=== PATIENT | male | born 1980 | race Caucasian/White ===

== ENCOUNTER 2024-12-18 05:23 | Emergency (ER) | payer OTHER, SELFPAY ==
[2024-12-18 05:32] VITALS: BP 184/112
[2024-12-18 06:35] VITALS: BMI 28.6
[2024-12-18 06:42] VITALS: BP 140/81
[2024-12-18 06:50] LABS: Hematocrit 46.6 % (39.0-52.0); Hemoglobin 16.7 g/dL (13.0-18.0); Mean Corp Hgb Conc. 35.8 g/dL (33.0-37.0); Mean Corpuscular Hgb 30.5 pg (27.0-31.0); Mean Platelet Volume 10.5 fL (7.4-10.4); Platelet Count 220 10^3/uL (130-400); Red Blood Cell Count 5.48 10^6/uL (4.70-6.10); Red Cell Dist. Width 12.6 % (11.5-14.5); White Blood Cell Count 3.2 10^3/uL (4.8-10.8)
[2024-12-18 07:00] VITALS: BP 120/80
[2024-12-18 07:11] LABS: Troponin I < 0.012 ng/ml
[2024-12-18 07:37] LABS: TSH 3.36 uIU/ml (0.47-4.68)
--- NOTE | 2024-12-18 07:52 | ED.GENMED ---
History of Present Illness
General
Chief Complaint: Heart Rate Problem
Source: patient
Exam Limitations: none
Time Seen by Provider: 12/18/24 06:05
Nursing documentation reviewed up to this point in time: agreed with
History of Present Illness
History of Present Illness:
Patient presents to ED after waking up this morning around 5 AM with chest palpitations with shortness of breath, Has never happened before. Denies chest pain. Denies dizziness. Denies diaphoresis. Denies nausea or vomiting denies recent
illness. Denies recent travel. Denies leg pain or swelling. Denies back pain. Denies recent change in medications or diet. Patient does report feeling stressed recently. In addition, patient has been modifying his diet along with increased
cardiovascular exercise, and has lost approximately 15 pounds of weight over the past 2 weeks. However, patient states that he does drink 'plenty of water'. Patient does not smoke, but does report drinking alcohol occasionally. At the time of
evaluation ED, patient states that his symptoms have resolved spontaneously.
Past History
Past History
ED Past Medical History: None
ED Past Surgical History: None
Social History
Tobacco: Non-smoker
Review of Systems
Review of Systems
Allergies reviewed?: Yes
All Other Systems: ROS reviewed and negative except as documented in HPI and ROS
Constitutional: Reports no symptoms
Respiratory: Reports trouble breathing
Cardiac: Reports palpitations
ABD/GI: Reports no symptoms
Musculoskeletal: Reports no symptoms
Skin: Reports no symptoms
Neurological: Reports no symptoms
Phy Exam
Physical Exam
Physical Exam:
Physical Exam
General: no apparent distress, not acutely ill. afebrile.
Head: nc/at. eomi
Neck: supple. normal range of motion. no jvd
Heart: s1/s2 regular rate and rhythm, no murmur.
Lungs: no acute respiratory distress. clear bilaterally
Abdomen: normal bowel sounds. not tender.
Neuro: alert and oriented x 3. no focal neurological deficits
Skin: no rash
Psychiatric: well kept. interactive and cooperative
Extremities: no edema. no calf tenderness.
Scores
[id number] Score for Afib Stroke Risk
Age in Years (65=0, 65-74=1, >/=75=2): <65
Sex (Female=+1): Male
Congestive Heart Failure History (Yes=+1): No
Hypertension History (Yes=+1): No
Stroke/TIA/Thromboembolism History (Yes=+2): No
Vascular Disease History (Yes=+1): No
Diabetes Mellitus (Yes=+1): No
Score: 0
Anticoagulation Recommendations: Anticoagulation not indicated (as validated in nonvalvular afib). Consider anticoagulation irrespective of score in patients with HCM
Course
Orders/Labs/Results
Orders:
Orders
12/18/24 05:35
EKG [Electrocardiogram (*1)] Urgent
Reason for Study: Chest Pain
12/18/24 05:36
EKG- Treatment ONCE
12/18/24 06:20
Electrocardiogram (*1) Urgent
Reason for Study: Atrial Fibrillation
EKG- Treatment ONCE
12/18/24 06:26
Complete Blood Count/With Diff Urgent
Troponin I Urgent
12/18/24 06:28
Add On- LAB Urgent
Comments:: add to COMP
Tests Added?: TSH
12/18/24 06:33
TSH Urgent
Comment: ADD ON
12/18/24 08:00
Comprehensive Metabolic Panel Urgent
Comment: REDRAW
Abnormal Lab Results
12/18/24
06:26
WBC 3.2 L 10^3/uL
(4.8-10.8)
MPV 10.5 H fL
(7.4-10.4)
Absolute Neuts (auto) 1.2 L 10^3/uL
(1.4-6.5)
Neutrophils % 36.9 L %
(42.2-75.2)
Lymphocytes % 52.0 H %
(20.5-51.1)
12/18/24 06:26
12/18/24 08:00
Vital Signs
Initial and Last Documented VS:
Initial Vital Signs
Temp Pulse Resp BP Pulse Ox
97.8 F 142 28 184/112 100
12/18/24 05:32 12/18/24 05:32 12/18/24 05:32 12/18/24 05:32 12/18/24 05:32
Last Documented Vital Signs
Temp Pulse Resp BP Pulse Ox
97.8 F 78 18 111/78 98
12/18/24 05:32 12/18/24 08:45 12/18/24 08:45 12/18/24 08:00 12/18/24 08:45
MDM/Problems Addressed
MDM/Problems Addressed:
Initial EKG revealed rapid atrial fibrillation. However, during brief observation ED on the monitor, prior to my evaluation, patient noted to convert spontaneously to normal sinus rhythm, confirmed by repeat EKG.
Discussed with on-call early childhood aide classroom, . Does not recommend anti-coagulation. Recommends either providing metoprolol as needed vs daily dosing until outpatient evaluation. Cardiology office will call patient and make an arrangement for
urgent f/u.
Pt prefers to take Toprol daily. Pt otherwise agrees with treatment plan
*Critical Care Note
Total Time (30-74mins, 75-104mins- exclusive of procedures): Not Applicable
ED Attending Note
-
Portions of this chart may have been created with voice recognition software.� Occasional wrong word or��sound alike� substitutions may have occurred due to the inherent limitations of voice recognition software.
Discharge Plan
Departure
Patient Disposition: Home (Routine Discharge)
Date of Disposition: 12/18/24
Time of Disposition: 08:38
Patient with high blood pressure during this ER visit?: Yes
Condition: Good
Discharge Problem:
Atrial fibrillation
Instructions: Atrial Fibrillation (DC)
Prescriptions:
New
metoprolol succinate [Toprol XL] 25 mg tablet extended release 24 hr
25 mg PO DAILY Qty: 20 0RF
No Action
allopurinol 300 mg Tablet
300 mg PO DAILY
rosuvastatin 10 mg Tablet
10 mg PO DAILY
rosuvastatin [Crestor] 10 mg Tablet
10 mg PO DAILY
Referrals:
Hu Yates MD [Active] -
Brandy Nolan MD [Family Provider] -
Activity Restrictions/Additional Instructions:
As discussed, please follow-up with referred early childhood aide classroom for further evaluation and treatment. Your prescription has been sent electronically to [facility] pharmacy in [place].
Interventions
Interventions:
*Risk Screen - Suicide Last Done: 12/18/24 05:50
*General Assessment Last Done: 12/18/24 05:50
*Neglect/Abuse Screening Last Done: 12/18/24 06:41
*ED- Fall Risk Assessment Last Done: 12/18/24 05:50
*ED COVID-19 Vaccine History Last Done: 12/18/24 05:50
*Nursing Disposition Last Done: 12/18/24 09:00
ED- Cardiac Assessment Last Done: 12/18/24 05:50
ED- Pulmonary Assessment Last Done: 12/18/24 05:50
Discharge Date and Time
Discharge Date/Time: 12/18/24 09:00
Print Language: [place] CITIZ[place]
[2024-12-18 08:00] VITALS: BP 111/78
[2024-12-18 08:33] LABS: ALT (SGPT) 49 U/L (0-50); AST (SGOT) 32 U/L (17-59); Albumin 4.3 g/dl (3.5-5.0); Alkaline Phosphatase 76 U/L (38-126); Blood Urea Nitrogen 13 mg/dl (9-20); Calcium 9.8 mg/dl (8.4-10.2); Carbon Dioxide 24 mmol/L (22-30); Chloride 103 mmol/L (98-107); Estimated Creatinine Clearance 122 ml/min; Glucose 85 mg/dl (70-99); Sodium 140 mmol/L (135-145); Total Bilirubin 0.8 mg/dl (0.2-1.3); Total Protein 6.8 g/dl (6.3-8.2); eGFR > 60.00
[2024-12-18 08:39] LABS: % Basophils 0.6 % (0-2); % Eosinophils 1.2 % (0-6); % Immature Granulocytes 0.3 % (0-0.5); % Neutrophils 36.9 % (42.2-75.2); Absolute Lymphocytes 1.7 10^3/uL (1.2-3.4); Absolute Monocytes 0.3 10^3/uL (0.1-0.6); Absolute Neutrophils 1.2 10^3/uL (1.4-6.5); Nucleated Red Blood Cells % 0 % (-)
== END 2024-12-18 09:00 | disposition home or self-care (01) ==
LOC: EMR 05:23
PROVIDERS: EMERGENCY PHYSICIAN Emergency Medicine; FAMILY PHYSICIAN Internal Medicine
DX: I48.91 Unspecified atrial fibrillation (principal)
CPT/HCPCS: 99283; 80053; 84443; 84484; 85025; 93005

== ENCOUNTER 2024-12-19 15:50 | Emergency (ER) | payer OTHER, SELFPAY ==
[2024-12-19 15:51] VITALS: BP 128/85
[2024-12-19 16:00] VITALS: BP 141/82
--- NOTE | 2024-12-19 16:36 | ED.GENMED ---
History of Present Illness
General
Chief Complaint: Heart Rate Problem
Source: patient, records (Seen in emergency department yesterday, with spontaneous conversion from rapid atrial fibrillation to normal sinus rhythm.) and spouse
Exam Limitations: none
Time Seen by Provider: 12/19/24 16:35
Nursing documentation reviewed up to this point in time: agreed with
History of Present Illness
History of Present Illness:
44-year-old male presents emergency department due to palpitations. He states he feels different than when he had atrial fibrillation yesterday. He denies chest pain. He did take his Toprol today.
Past History
Past History
ED Past Medical History: Arrthythmia (Atrial fibrillation)
ED Past Surgical History: None
Social History
Tobacco: Non-smoker
Alcohol: Occasional
Drug: None
Personal:
Living: with family
Employment: Employed (Teacher)
Review of Systems
Review of Systems
Allergies reviewed?: Yes
All Other Systems: Not applicable
Constitutional: Reports no symptoms
EENT: Reports no symptoms
Respiratory: Reports no symptoms
Cardiac: Reports palpitations
ABD/GI: Reports no symptoms
: Reports no symptoms
Musculoskeletal: Reports no symptoms
Skin: Reports no symptoms
Neurological: Reports no symptoms
Endocrine: Reports no symptoms
Hematologic/Lymphatic: Reports no symptoms
Psychiatric: Reports no symptoms
Phy Exam
Physical Exam
Physical Exam:
Physical Exam
General: no apparent distress, not acutely ill
Neck: supple. no meningeal signs. normal posterior pharynx
Heart: s1/s2 regular rate and rhythm, no murmur. equal radial
pulses.
HEENT: Pupils equal round reactive to light, EOMI
Lungs: no acute respiratory distress. clear bilaterally
Abdomen: normal bowel sounds. not tender. no CVAT
Neuro: alert and oriented. no focal neurological deficits cranial nerves II through XII intact
Skin: no rash
Psychiatric: well kept. interactive and cooperative
Extremities: no edema. no calf tenderness. negative homans. good distal pulses
Course
Orders/Labs/Results
Orders:
Orders
12/19/24 15:50
Electrocardiogram (*1) Urgent
Reason for Study: Atrial Fibrillation
EKG- Treatment ONCE
12/19/24 15:55
Electrocardiogram (*1) Urgent
Reason for Study: Atrial Fibrillation
EKG- Treatment ONCE
Vital Signs
Initial and Last Documented VS:
Initial Vital Signs
Temp Pulse Resp BP Pulse Ox
98.1 F 85 16 128/85 98
12/19/24 15:51 12/19/24 15:51 12/19/24 15:51 12/19/24 15:51 12/19/24 15:51
Last Documented Vital Signs
Temp Pulse Resp BP Pulse Ox
98.1 F 74 16 141/82 98
12/19/24 15:51 12/19/24 16:00 12/19/24 15:51 12/19/24 16:00 12/19/24 15:51
MDM/Problems Addressed
Differential Diagnosis Includes:
Atrial fibrillation, palpitation
MDM/Problems Addressed:
44-year-old male with palpitations. Atrial fibrillation not seen on EKG or monitor. Stable for discharge. Follow-up with cardiology Monday. Return precautions given.
Chronic conditions affecting care: Arrhythmia
*Pulse Oximetry
Patient hypoxic: no
*EKG
Interpreted by ED Provider?: Yes
EKG Intrepretation Date: 12/19/24
EKG Intrepretation Time: 15:58
Interpretation: normal
Comparison EKG: no changes
Heart Rate: 75
Rate: normal
Rhythm: sinus
Guys: normal axis
Interval: normal interval
QRS Pattern: normal QRS
Ischemia: no ischemia
*Eyelet Machine Operator Interpretation
Rate: normal
Interpretation: normal
Heart Rate: 80
Rhythm: sinus
*Critical Care Note
Total Time (30-74mins, 75-104mins- exclusive of procedures): Not Applicable
Data Reviewed
Review of Other/Old Records Reveals: Testing (EKG from December 18, 2024 at 5:38 AM shows atrial fibrillation with rapid ventricular response)
Source: records
Patient Management
Social determinants of health affecting care: Living situation and Strong social support
Escalation/DeEscalation of care consider admission/obs:
Admit not indicated
ED Attending Note
-
Portions of this chart may have been created with voice recognition software.� Occasional wrong word or��sound alike� substitutions may have occurred due to the inherent limitations of voice recognition software.
Discharge Plan
Departure
Patient Disposition: Home (Routine Discharge)
Date of Disposition: 12/19/24
Time of Disposition: 16:59
Patient with high blood pressure during this ER visit?: Yes
Condition: Good
Discharge Problem:
Palpitations with regular cardiac rhythm
Instructions: Atrial Fibrillation (DC), BLOOD PRESSURE
Prescriptions:
No Action
allopurinol 300 mg Tablet
300 mg PO DAILY
rosuvastatin 10 mg Tablet
10 mg PO DAILY
rosuvastatin [Crestor] 10 mg Tablet
10 mg PO DAILY
metoprolol succinate [Toprol XL] 25 mg tablet extended release 24 hr
25 mg PO DAILY Qty: 20 0RF
Interventions
Interventions:
*Risk Screen - Suicide Last Done: 12/19/24 15:51
*Neglect/Abuse Screening Last Done: 12/19/24 15:51
ED- Cardiac Assessment Last Done: 12/19/24 16:22
ED- Pulmonary Assessment Last Done: 12/19/24 16:22
Discharge Date and Time
Print Language: KYRGYZ
== END 2024-12-19 17:36 | disposition home or self-care (01) ==
LOC: EMR 15:50
PROVIDERS: EMERGENCY PHYSICIAN Emergency Medicine; FAMILY PHYSICIAN Internal Medicine
DX: R00.2 Palpitations (principal); I48.91 Unspecified atrial fibrillation
CPT/HCPCS: 99283; 93005

== ENCOUNTER 2024-12-19 19:58 | Emergency (ER) | payer OTHER, SELFPAY ==
[2024-12-19 20:03] VITALS: BP 145/90
[2024-12-19 20:13] VITALS: BP 133/82
--- NOTE | 2024-12-19 20:47 | ED.GENMED ---
History of Present Illness
General
Chief Complaint: Cardiac Symptoms
Source: patient and spouse
Time Seen by Provider: 12/19/24 20:20
History of Present Illness
History of Present Illness:
This patient is a 44-year-old male presents emergency department with complaints of feeling like he is in A-fib again, described as palpitations. He first developed this for the first time yesterday, was seen in the emergency department,
spontaneously converted. His [id number] is 0, case was discussed with cardiology and has appointment on Monday for follow-up. He was started on Toprol 25 mg. Today, he took his med at 3:30 PM. However, shortly before this he started to feel
like he was going into A-fib again, and came to the ER. He again spontaneously converted and went home. He presents again tonight, again feeling like he is in A-fib. Since arrival he is spontaneously converted and then gone into A-fib again at
least 3 times. He denies associated chest pain or pressure, dyspnea, lightheadedness, leg swelling, family history of early CAD, clotting disorder, or arrhythmia. He denies history of thyroid disorder, heavy alcohol use, OTC meds use. He denies
PE risk factors such as recent immobilization, recent trauma, smoking, etc.
Past History
Past History
ED Past Medical History: Arrthythmia (Atrial fibrillation)
ED Past Surgical History: None
Social History
Tobacco: Non-smoker
Alcohol: Occasional
Drug: None
Personal:
Living: with family
Employment: Employed (Teacher)
Phy Exam
Physical Exam
Physical Exam:
GENERAL: Alert , in no apparent distress
EYE: pupils equal and reactive
NECK: Supple, no significant adenopathy.
ENT: o/p clr, mmm.
CARDIAC: Regular rate and rhythm .
LUNGS: Clear breath sounds bilaterally, no acute respiratory distress, no wheezes/rales/rhonchi
ABDOMEN: Soft, without focal tenderness, no r/g, no cvat
NEUROLOGICAL: Alert and oriented, no focal neuro deficits
SKIN: Warm and dry, skin intact.
MUSCULOSKELETAL: No edema, well perfused.
PSYCH: Normal and appropriate interaction.
Course
Orders/Labs/Results
Orders:
Orders
12/19/24 19:59
EKG [Electrocardiogram (*1)] Urgent
Reason for Study: Palpitations
12/19/24 20:00
EKG- Treatment ONCE
12/19/24 20:15
EKG [Electrocardiogram (*1)] Urgent
Reason for Study: Atrial Fibrillation
EKG- Treatment ONCE
12/19/24 20:49
Metoprolol Xl [Toprol Xl] 25 mg PO NOW STA
Vital Signs
Initial and Last Documented VS:
Initial Vital Signs
Temp Pulse Resp BP Pulse Ox
97.6 F 140 20 145/90 99
12/19/24 20:03 12/19/24 20:03 12/19/24 20:03 12/19/24 20:03 12/19/24 20:03
Last Documented Vital Signs
Temp Pulse Resp BP Pulse Ox
97.6 F 84 14 122/72 94
12/19/24 20:03 12/19/24 21:30 12/19/24 21:30 12/19/24 20:58 12/19/24 21:30
Update Note
Update Note:
Patient presents to the Emergency Department with ___palpitations
Number and Complexity of Problems Addressed at the Encounter
� Chronic conditions affecting care:
� Acute Exacerbation and/or Progression of Chronic Illness:
� Differential Diagnosis includes: But not limited to A-fib with RVR, a flutter, SVT, anxiety, etc. etc.
Amount and/or Complexity of Data to be Reviewed and Analyzed
� I performed an independent evaluation of and my interpretation is:
EKG:
CT:
Xrays:
Laboratory Studies:
Other:
� Review of other/old records reveals:
� Clinical information was obtained by an independent historian: ER charts and who is bedside
� Prescriptions/Medications Considered but not given:
� Further testing considered but not performed:
Risk of Complications and/or Morbidity or Mortality of Patient Management
� Social determinants of health affecting care:
� Discussion with other providers (PCP, Hospitalists, Consultants, etc):
� Escalation of care including admission/observation vs risk of discharge considered:
ED Attending Note
-
Portions of this chart may have been created with voice recognition software.� Occasional wrong word or��sound alike� substitutions may have occurred due to the inherent limitations of voice recognition software.
Discharge Plan
Departure
Patient Disposition: Home (Routine Discharge)
Date of Disposition: 12/19/24
Time of Disposition: 21:58
Patient with high blood pressure during this ER visit?: Yes
Condition: Good
Discharge Problem:
Atrial fibrillation with RVR
Instructions: BLOOD PRESSURE
Prescriptions:
No Action
allopurinol 300 mg Tablet
300 mg PO DAILY
rosuvastatin 10 mg Tablet
10 mg PO DAILY
rosuvastatin [Crestor] 10 mg Tablet
10 mg PO DAILY
metoprolol succinate [Toprol XL] 25 mg tablet extended release 24 hr
25 mg PO DAILY Qty: 20 0RF
Activity Restrictions/Additional Instructions:
PLEASE SEE THE IS ARCHITECT SCHEDULED ON MONDAY. IF YOU DEVELOP CHEST PAIN, SHORTNESS OF BREATH, FEVER, DIZZINESS, PERSISTENT PALPITATIONS, OR OTHER WORRISOME SIGNS, PLEASE RETURN TO THE ER IMMEDIATELY.
Interventions
Interventions:
*Risk Screen - Suicide Last Done: 12/19/24 20:03
*General Assessment Last Done: 12/19/24 20:03
*Neglect/Abuse Screening Last Done: 12/19/24 20:03
*ED COVID-19 Vaccine History Last Done: 12/19/24 21:00
ED- Pulmonary Assessment Last Done: 12/19/24 20:37
ED- Cardiac Assessment Last Done: 12/19/24 20:37
Discharge Date and Time
Print Language: AMHARIC
[2024-12-19 20:56] VITALS: BP 122/72
[2024-12-19] MEDS: TOPROL XL 25 MG PO (20:58)
[2024-12-19 22:00] VITALS: BP 120/86
== END 2024-12-19 22:15 | disposition home or self-care (01) ==
LOC: EMR 19:58
PROVIDERS: EMERGENCY PHYSICIAN Emergency Medicine; FAMILY PHYSICIAN Internal Medicine
DX: I48.91 Unspecified atrial fibrillation (principal); R00.2 Palpitations
CPT/HCPCS: 99283; 93005

== ENCOUNTER → 2025-01-07 15:46 | Outpatient (REF) | payer OTHER, SELFPAY | LOC: HWRCS 15:46 | PROVIDERS: ATTENDING PHYSICIAN Internal Medicine Cardiovascular Disease; FAMILY PHYSICIAN Internal Medicine | DX: I48.91 Unspecified atrial fibrillation (principal) | CPT/HCPCS: 93306 ==

== ENCOUNTER → 2025-02-04 11:26 | Outpatient (REF) | payer OTHER, SELFPAY | LOC: DHSLP 11:26 | PROVIDERS: ATTENDING PHYSICIAN Internal Medicine Cardiovascular Disease; FAMILY PHYSICIAN Internal Medicine | DX: G47.30 Sleep apnea, unspecified (principal); R06.83 Snoring | CPT/HCPCS: 95800 ==

== ENCOUNTER 2025-04-08 08:30 | Day surgery (SDC) | payer OTHER, SELFPAY ==
[2025-04-01 10:46] LABS: Hematocrit 45.2 % (39.0-52.0); Hemoglobin 15.9 g/dL (13.0-18.0); Mean Corp Hgb Conc. 35.2 g/dL (33.0-37.0); Mean Corpuscular Volume 87.9 fL (80.0-94.0); Nucleated Red Blood Cells % 0 % (-); Platelet Count 211 10^3/uL (130-400); Red Cell Dist. Width 12.4 % (11.5-14.5)
[2025-04-01 11:04] LABS: INR 1.16; PT 15.1 Sec (11.4-14.6)
[2025-04-01 11:13] LABS: ALT (SGPT) 53 U/L (0-50); AST (SGOT) 30 U/L (17-59); Albumin 5.1 g/dl (3.5-5.0); Alkaline Phosphatase 85 U/L (38-126); Blood Urea Nitrogen 18 mg/dl (9-20); Calcium 10.0 mg/dl (8.4-10.2); Carbon Dioxide 26 mmol/L (22-30); Chloride 104 mmol/L (98-107); Estimated Creatinine Clearance 110 ml/min; Glucose 95 mg/dl (70-99); Magnesium 1.8 mg/dl (1.6-2.3); Potassium 4.9 mmol/L (3.5-5.1); Sodium 140 mmol/L (135-145); Total Protein 8.1 g/dl (6.3-8.2); eGFR > 60.00
[2025-04-08] VITALS (11 sets, daily range): BP systolic 115–160; BP diastolic 74–101
[2025-04-08] MEDS: TYLENOL 1000 MG PO (09:39)
[2025-04-08 11:32] LABS: ACT-LR - POC 277 Seconds (116-155)
[2025-04-08 11:49] LABS: ACT-LR - POC 342 Seconds (116-155)
[2025-04-08 12:03] LABS: ACT-LR - POC 303 Seconds (116-155)
[2025-04-08 12:22] LABS: ACT-LR - POC 326 Seconds (116-155)
[2025-04-08 12:36] LABS: ACT-LR - POC 158 Seconds (116-155)
--- NOTE | 2025-04-08 13:19 | ITS.CL.ABL ---
Parachute Taper - Ablation
Ablation
Procedure Report:
Primary Care: Dr Brandy Nolan
Procedure Date: 04/08/2025
Patient History:
Patient is a pleasant 44-year-old male with a past medical history significant for mixed dyslipidemia, obesity, sleep apnea, and paroxysmal symptomatic atrial fibrillation.
See H&P for complete details.
Indication:
Symptomatic paroxysmal atrial fibrillation
Arrhythmia Specific History:
Prior Medical Therapies for Rate and Rhythm Control:
X Beta-hardik
[ ] Calcium channel-hardik
[ ] Amiodarone
[ ] Dronederone
[ ] Sotalol
[ ] Flecainide
[ ] Dofetilide
[ ] Options limited by bradycardia
[ ] Options limited by comorbid renal disease
Prior Procedural Therapies for AF/AFL:
[ ] Cardioversion
[ ] Pulmonary Vein Isolation
[ ] Posterior Wall Isolation
[ ] Additional lines (Specify)
[ ] Surgical Miller-MAZE or PVI (Specify)
Procedure Performed:
X AF ablation procedure (43541) -- includes LA/CS pacing, trans-septal, 3D mapping, + ICE
[ ] +IV drug (04940)
[ ] +Other Arrhythmia (37788)
[ ] +Other AF Line/ablation (60161)
Risks and expected recovery has been explained in detail. Alternative options have been explored, and in a shared-decision making fashion we have decided that this was the most appropriate procedure.
Method
NPO status confirmed. Grounding pad applied. Defibrillator pads applied. Continuous surface ECG, pulse oximetry, and blood pressure were monitored. Procedure was performed under general anesthesia, with anesthesia services.
Both groins were clipped, prepped with Chloraprep, and draped in sterile fashion. Time out was called. Local anesthesia administered with bupivacaine. The right femoral vein was accessed for catheter placement, using ultrasound guidance (images
saved to record), micro-puncture needle/wire, and modified seldinger technique. 3 sheaths were placed. The following catheters were used:
[ ] Tacticath SE (D/F Curve) ablation catheter
X Viewflex 9Fr ICE catheter
X Inquiry decapolar 6Fr diagnostic catheter
[ ] CRD Hex 6Fr
X FlexCath Contour 10 Fr with PulseSelect PFA Catheter
X Advisor HD Grid Mapping Catheter, SE
[ ] Acuson AcuNav 8 Fr ICE catheter
[ ]Other: [ ]
Intracardiac ultrasound (ICE) was carefully advanced into the right atrium to guide sheath placement over a J-wire, catheter placement, guide trans-septal puncture, identify potential complications, identify anatomic structures and ensure proper
contact between ablation catheter and tissue.
Heparin was given prior to trans-septal puncture. Heparin was given to achieve and maintain a target ACT of 300-400 seconds throughout the procedure.
Trans-septal access was performed under ICE guidance. The trans-septal puncture was performed with a SafeSept wire through a Brockenbrough needle assembly through the steerable sheath. The wire was visualized as it entered the LSPV and system
advanced under ICE guidance and fluoroscopy into the LA. The Brockenbrough needle assembly, SafeSept wire and sheath dilator were removed under negative pressure. LA pressure was measured and recorded.
ICE and 3D mapping was performed to identify relevant cardiac structures. A careful 3D map was created to assess for regions of low-voltage and abnormal electrogram signals using HD grid mapping catheter and PulseSelect catheter. Additional mapping
was performed as outlined below.
Prior to ablation, glycopyrrolate was provided. PulseSelect catheter was advanced over J-wire to the ostium of each vein. Pulmonary vein isolation was performed with ostial and antral lesions in a circumferential manner. Contact was visualized via
EAM, ICE, fluoroscopy, and EGM signals.
Following completion of ablation lesions, a post-ablation voltage/activation map was performed in sinus rhythm. Entrance and exit block were confirmed for each vein.
Catheter and sheath were removed from the left atrium and post-ablation intracardiac echo evaluation was consistent with pre-ablation with no changes and no pericardial effusion and there is no left atrial thrombus or left ventricle thrombus seen.
Electrophysiology study was performed. Hemostasis was obtained with Vascade for each sheath and with manual pressure. Protamine was used for reversal.
Estimated Blood Loss
5 mL
Complications
None
Fluoroscopy: 1.9 minutes; 6.06 mGy; DAP 0.735
LA Pressure: Pre 7 mmHg, post 8 mmHg
Baseline Intervals:
Rhythm: SR
WY: 164 ms
QRS: 95 ms
QT: 343 ms
QTc: 404 ms
Post-Procedure Intervals:
WY: 182 ms
QRS: 106 ms
QT: 413 ms
QTc: 406 ms
AVWB: 350 ms
AVNERP: 600/280 ms
AERP: 600/230 ms
Recommendations
- Bedrest with straight-leg precautions as ordered
- Anticipate same day discharge if patient meeting clinical metrics
- Resume home medications as indicated
- Ok to resume anticoagulation tonight if patient and groin sites stable
- PPI daily for 30 days
- Plan for follow-up in office as scheduled
Mich Luciano DO, FACC, FHRS
Clinical Cardiac Fire Adjuster
cc: Dr Brandy Nolan
--- NOTE | 2025-04-08 14:38 | W.PN.UPDATE ---
Update Note
Progress Note Update
Pt seen post PFA. Right groin with vascade closure, no ht/bleeding, non tender. OOB ambulating, urinating without difficulty. Post EKG NSR 65, no acute changes. Resume eliquis tonight at usual time. 30 day rx for protonix post procedure sent to
pharmacy. Followup with Dr. Luciano as scheduled. Home today if groin site/tele remain stable.
== END 2025-04-08 15:46 | disposition home or self-care (01) ==
LOC: CATH 08:30
PROVIDERS: ATTENDING PHYSICIAN Internal Medicine Cardiovascular Disease; FAMILY PHYSICIAN Internal Medicine
DX: I48.0 Paroxysmal atrial fibrillation (principal); G47.33 Obstructive sleep apnea (adult) (pediatric); M10.9 Gout, unspecified; Z79.899 Other long term (current) drug therapy; Z79.01 Long term (current) use of anticoagulants
CPT/HCPCS: C1732; C1894; C1730; C1733; C1769; 36415; 75572; 80053; 83735; 85025; 85347; 85610; 86850; 86900; 86901; 93005; 93656; C1760; C1766; Q9967

== ENCOUNTER 2025-04-10 15:42 | Emergency (ER) | payer OTHER, SELFPAY ==
[2025-04-10 15:59] VITALS: BP 133/89
[2025-04-10 16:23] LABS: Hematocrit 42.1 % (39.0-52.0); Hemoglobin 14.7 g/dL (13.0-18.0); Mean Corp Hgb Conc. 34.9 g/dL (33.0-37.0); Mean Corpuscular Volume 89.4 fL (80.0-94.0); Nucleated Red Blood Cells % 0 % (-); Platelet Count 202 10^3/uL (130-400); Red Cell Dist. Width 13.0 % (11.5-14.5)
[2025-04-10 16:35] LABS: ALT (SGPT) 42 U/L (0-50); AST (SGOT) 32 U/L (17-59); Albumin 4.7 g/dl (3.5-5.0); Alkaline Phosphatase 74 U/L (38-126); Blood Urea Nitrogen 18 mg/dl (9-20); Calcium 8.8 mg/dl (8.4-10.2); Carbon Dioxide 26 mmol/L (22-30); Chloride 107 mmol/L (98-107); Glucose 96 mg/dl (70-99); Potassium 3.8 mmol/L (3.5-5.1); Sodium 142 mmol/L (135-145); Total Protein 7.3 g/dl (6.3-8.2); eGFR > 60.00
[2025-04-10 16:47] LABS: Troponin I 3.540 ng/ml
--- NOTE | 2025-04-10 17:02 | ED.GENMED ---
History of Present Illness
General
Chief Complaint: Chest Pain
Time Seen by Provider: 04/10/25 16:55
History of Present Illness
History of Present Illness:
40-year-old male presents the emergency department for evaluation of chest pain and mild shortness of breath developing after an ablation for A-fib at this hospital 2 days ago. He is currently on Eliquis. Symptoms nearly resolved when he is
upright. No fevers or chills. No back pain, leg swelling, or coughing.
Past History
Past History
ED Past Medical History: Arrthythmia (Atrial fibrillation)
ED Past Surgical History: None
Social History
Tobacco: Non-smoker
Alcohol: Occasional
Drug: None
Personal:
Living: with family
Employment: Employed (Teacher)
Review of Systems
Review of Systems
Allergies reviewed?: Yes
All Other Systems: ROS reviewed and negative except as documented in HPI and ROS
Phy Exam
Physical Exam
Physical Exam:
GEN: Well appearing, NAD, WDWN
Eyes: PERRLA, EOMs intact, no scleral icterus
HENT: NCAT, oral mucosa moist
Lungs: CTAB, no wheezes, rales, rhonchi, normal chest wall excursion
Cardiac: RRR, no M/R/G, no peripheral edema. Radial pulses 2+ bilat
Abdomen: S, NT, ND, NABS, no masses or hepatosplenomegaly
Neuro: AO x 3, no focal deficits to BUE/BLE, normal sensation throughout
MSK: No gross deformity or ecchymosis. No edema. No digital clubbing
Skin: No rashes, petechiae. Normal color, no pallor or jaundice.
Psych: Calm, cooperative, proper hygiene
Scores
Heart Score for Chest Pain Patients
STEMI patient?: No
History: Slightly or Non-Suspicious
ECG: Normal
Age: </= 45 years
Risk Factors: No Risk Factors
Troponin: </= Normal Limit
Heart Score for Chest Pain Patients: 0
Heart Score Risk: 2.5% MACE over next 6 weeks
Course
Orders/Labs/Results
Orders:
Orders
04/10/25 15:42
EKG [Electrocardiogram (*1)] Urgent
Reason for Study: Chest Pain
04/10/25 15:43
EKG- Treatment ONCE
04/10/25 16:14
C-Reactive Protein Urgent
Comment: ADD ON
Complete Blood Count/With Diff Urgent
Comprehensive Metabolic Panel Urgent
Erythrocyte Sed Rate Urgent
Comment: ADD ON
Troponin I Urgent
04/10/25 17:02
Add On- LAB Urgent
Tests Added?: ESR, CRP
04/10/25 17:04
CR Chest - 2 Views Urgent
Comment:
Reason For Exam: CP/SOB post ablation
04/10/25 18:14
Troponin I Routine
Abnormal Lab Results
04/10/25 04/10/25
16:14 18:14
MCH 31.2 H pg
(27.0-31.0)
Troponin I 3.540 H* ng/ml 3.260 H* ng/ml
04/10/25 16:14
04/10/25 16:14
Vital Signs
Initial and Last Documented VS:
Initial Vital Signs
Temp Pulse Resp BP Pulse Ox
98.6 F 71 18 133/89 99
04/10/25 15:59 04/10/25 15:59 04/10/25 15:59 04/10/25 15:59 04/10/25 15:59
Last Documented Vital Signs
Temp Pulse Resp BP Pulse Ox
97.6 F 76 16 155/85 99
04/10/25 17:10 04/10/25 19:30 04/10/25 19:30 04/10/25 19:00 04/10/25 19:30
MDM/Problems Addressed
MDM/Problems Addressed:
Patient's clinical presentation is most consistent with acute postprocedural days. His initial troponin is markedly elevated most likely secondary to ablation but repeat troponin down trended nicely. He remained stable in the ED with no
significant worsening and limited bedside cardiac ultrasound performed by myself shows no evidence for pericardial effusion. Will start the patient on colchicine, will not give ibuprofen due to Eliquis use. Of note the patient did have a brief
visual anomaly in the ED described as lateral blurry vision however this resolved within several minutes. No visual loss concerning for acute CVA/TIA.
*Pulse Oximetry
SaO2: 99
Oxygen Mode of Delivery: Room air
Patient hypoxic: no
*Critical Care Note
Total Time (30-74mins, 75-104mins- exclusive of procedures): Not Applicable
ED Attending Note
-
Portions of this chart may have been created with voice recognition software.� Occasional wrong word or��sound alike� substitutions may have occurred due to the inherent limitations of voice recognition software.
Discharge Plan
Departure
Patient Disposition: Home (Routine Discharge)
Date of Disposition: 04/10/25
Time of Disposition: 19:39
Patient with high blood pressure during this ER visit?: No
Discharge Problem:
Pericarditis
Instructions: Pericarditis
Prescriptions:
New
colchicine 0.6 mg tablet
0.6 mg PO BID 28 Days Qty: 56 0RF
No Action
allopurinol 300 mg Tablet
300 mg PO HS
rosuvastatin 10 mg Tablet
10 mg PO Q48H
Eliquis 5 mg Tablet
5 mg PO BID
metoprolol succinate [Toprol XL] 25 mg tablet extended release 24 hr
25 mg PO HS
pantoprazole [Protonix] 40 mg tablet,delayed release (DR/EC)
40 mg PO DAILY Qty: 30 0RF
Referrals:
Brandy Nolan MD [Family Provider, Internal Medicine]
Interventions
Interventions:
*Risk Screen - Suicide Last Done: 04/10/25 15:59
*General Assessment Last Done: 04/10/25 15:59
*Neglect/Abuse Screening Last Done: 04/10/25 17:10
*ED- Fall Risk Assessment Last Done: 04/10/25 17:10
*ED COVID-19 Vaccine History Last Done: 04/10/25 15:59
*Nursing Disposition Last Done: 04/10/25 19:55
ED- Cardiac Assessment Last Done: 04/10/25 17:10
Discharge Date and Time
Discharge Date/Time: 04/10/25 19:56
Print Language: CHINESE
[2025-04-10 17:04] VITALS: BMI 31.9
[2025-04-10 17:10] VITALS: BP 143/93
[2025-04-10 18:13] VITALS: BP 140/79
[2025-04-10 18:19] LABS: C-Reactive Protein < 5.00 mg/L (0.0-10.00)
[2025-04-10 18:31] VITALS: BP 140/79
[2025-04-10 18:48] LABS: Troponin I 3.260 ng/ml
[2025-04-10 19:00] VITALS: BP 155/85
--- NOTE | 2025-04-10 19:07 | EDRN ---
the pt reported visual changes in the left eye, this RN and Magnolia RN performed stroke scale assessment and notified the provider Zachary DOBBINS
== END 2025-04-10 19:56 | disposition home or self-care (01) ==
LOC: EMR 15:42
PROVIDERS: Physician Assistant; EMERGENCY PHYSICIAN Emergency Medicine; FAMILY PHYSICIAN Internal Medicine
DX: I31.9 Disease of pericardium, unspecified (principal); I48.91 Unspecified atrial fibrillation; Z79.01 Long term (current) use of anticoagulants
CPT/HCPCS: 99285; 71046; 80053; 84484; 85025; 85652; 86140; 93005

== ENCOUNTER → 2025-04-24 07:07 | Outpatient (REF) | payer OTHER, SELFPAY | LOC: HWRAD 07:07 | PROVIDERS: ATTENDING PHYSICIAN Internal Medicine Rheumatology; FAMILY PHYSICIAN Internal Medicine | DX: R74.8 Abnormal levels of other serum enzymes (principal) | CPT/HCPCS: 76700 ==

== ENCOUNTER → 2025-06-23 07:41 | Outpatient (REF) | payer OTHER, SELFPAY | LOC: RAD 07:41 | PROVIDERS: ATTENDING PHYSICIAN Thoracic Surgery (Cardiothoracic Vascular Surgery); FAMILY PHYSICIAN Internal Medicine | DX: J98.59 Other diseases of mediastinum, not elsewhere classified (principal); Z01.810 Encounter for preprocedural cardiovascular examination | CPT/HCPCS: 71260; Q9967 ==